=== PATIENT | male | born 1950 | race Caucasian/White ===

== ENCOUNTER 2016-06-26 13:16 | Outpatient (CLI) | payer MEDICARE | END 2016-06-26 13:17 | disposition home or self-care (01) | DX: C61 Malignant neoplasm of prostate (principal) ==

== ENCOUNTER 2016-09-01 12:51 | Outpatient (CLI) | payer MEDICARE | END 2016-09-01 12:52 | disposition home or self-care (01) | DX: C61 Malignant neoplasm of prostate (principal) ==

== ENCOUNTER 2016-10-21 14:46 | Outpatient (CLI) | payer MEDICARE | END 2016-10-21 14:47 | disposition home or self-care (01) | LOC: LAB.F 14:46 | PROVIDERS: ATTEND Urology | DX: C61 Malignant neoplasm of prostate (principal) | CPT/HCPCS: 36415; 84153 ==

== ENCOUNTER 2019-09-02 19:44 | Emergency (ER) | payer MEDICARE ==
--- NOTE | 2019-09-02 20:10 | ED Physician Documentation ---
PD HPI ABD PAIN - Stated complaint Stated Complaint: MALE /UNABLE TO URINATE - Chief complaint Chief Complaint: Abd Pain - History obtained from History obtained from: Patient (68-year-old gentleman with remote prostate cancer history developed inability to urinate earlier today. He also had a few days ago but that seemed to go away on its own. Now he is in severe suprapubic pain.) Review of Systems Ten Systems: 10 systems reviewed and negative Constitutional: reports: Reviewed and negative Cardiac: reports: Reviewed and negative Respiratory: reports: Reviewed and negative PD PAST MEDICAL HISTORY - Allergies Allergies/Adverse Reactions: Allergies Allergy/AdvReac Type Severity Reaction Status Date / Time erythromycin base Allergy Unknown Verified 09/02/19 19:58 PD ED PE NORMAL - Vitals Vital signs reviewed: Yes - General General: Alert and oriented X 3 - Abdomen Abdomen: Soft, Other (He appears uncomfortable, suprapubic tenderness and fullness. No surgical signs.) - Extremities Extremities: No edema, No calf tenderness / cord - Neuro Neuro: Alert and oriented X 3, Normal speech Results - Vitals Vitals: Vital Signs - 24 hr 09/02/19 09/02/19 09/02/19 19:50 19:55 21:26 Temperature 36.6 C Heart Rate 67 63 75 Respiratory 20 16 18 Rate Blood Pressure 219/119 H 194/114 H 175/98 H O2 Saturation 99 100 99 Oxygen O2 Source Room air - Labs Labs: Laboratory Tests 09/02/19 09/02/19 20:44 20:55 Sodium 137 Potassium 3.7 Chloride 102 Carbon Dioxide 23 Anion Gap 12.0 BUN 23 H Creatinine 1.3 H Estimated GFR (MDRD) 55 L Glucose 129 H Calcium 9.1 Urine Color YELLOW Urine Clarity HAZY Urine pH 6.0 Ur Specific [place] 1.020 Urine Protein 100 H Urine Glucose (UA) NEGATIVE Urine Ketones NEGATIVE Urine Occult Blood LARGE H Urine Nitrite NEGATIVE Urine Bilirubin NEGATIVE Urine Urobilinogen 0.2 (NORMAL) Ur Leukocyte Esterase NEGATIVE Urine RBC TNTC H Urine WBC 0-3 Ur Squamous Epith Cells NONE SEEN Urine Bacteria None Seen Ur Microscopic Review INDICATED Urine Culture Comments NOT INDICATED PD MEDICAL DECISION MAKING - ED course ED course: Subsequent to my evaluation the nurse was attempting to place a Webb, I guess it was some difficulty but the patient spontaneously urinated and then felt better. He was given some water, I feel he should probably stick around and urinate again to prove that he can since [place]. We had him drink a bunch of water and he was able to urinate, feeling like he got it all out without distress. Departure - Departure Disposition: 01 Home, Self Care Clinical Impression: Urinary retention Condition: Good Record reviewed to determine appropriate education?: Yes Instructions: ED Retention Urinary Male Comments: Return if you develop recurrent symptoms, either way follow-up with your urologist, I suspect they will want to perform a cystoscopy on you to see what is blocking up your stream.
[2019-09-02 20:58] LABS: CALCIUM 9.1 mg/dL (8.5-10.3); CREATININE 1.3 mg/dL (0.6-1.2)
[2019-09-02 21:01] LABS: BILIRUBIN,URINE NEGATIVE (NEGATIVE); GLUCOSE, URINE (UA) NEGATIVE (NEGATIVE); KETONES,URINE (UA) NEGATIVE (NEGATIVE); LEUKOCYTE ESTERASE, URINE NEGATIVE (NEGATIVE); NITRITE,URINE NEGATIVE (NEGATIVE); OCCULT BLOOD,URINE LARGE (NEGATIVE); PROTEIN,URINE 100 mg/dL (NEGATIVE); UROBILINOGEN,URINE 0.2 (NORMAL) E.U./dL (NORMAL)
[2019-09-02 21:03] LABS: CLARITY,URINE HAZY (CLEAR)
[2019-09-02 21:16] LABS: BACTERIA,URINE None Seen /HPF (None Seen); RBC,URINE TNTC /HPF (0-5); SQUAMOUS EPITHELIAL CELL,UR NONE SEEN (<= Few)
[2019-09-02 21:27] VITALS: BP 175/98
== END 2019-09-02 22:15 | disposition home or self-care (01) ==
LOC: ED 19:44
DX: R33.9 Retention of urine, unspecified (principal); R10.30 Lower abdominal pain, unspecified; Z85.46 Personal history of malignant neoplasm of prostate
CPT/HCPCS: 36415; 51798; 80048; 81001; 81003; 87086; 99283

== ENCOUNTER 2019-12-10 07:19 | Emergency (ER) | payer MEDICARE ==
[2019-12-10] MEDS ORDERED: LORazepam 2 MG/ML VIAL IVP STA (08:05)
--- NOTE | 2019-12-10 08:08 | ED Physician Documentation ---
PD HPI MALE - Stated complaint Stated Complaint: MALE - Chief complaint Chief Complaint: Abd Pain - History obtained from History obtained from: Patient - History of Present Illness Timing - onset: Enter time (2300), Last night Timing - duration: Hours Timing - details: Abrupt onset, Still present Associated symptoms: Dysuria, Unable to urinate Similar symptoms before: Diagnosis (urinary retention) Recently seen: Not recently seen - Additional information Additional information: 68-year-old male with a remote history of prostate cancer has had urinary retention 2 months ago and has developed symptoms of retention again with urgency and inability to urinate. He indicates that he has been getting some urine out periodically small amounts he is markedly decreased the amount of fluid he is drinking.He recalls having difficulty getting catheter placed in August of this year and a follow-up visit to the urologist. He is expecting to have cystoscopy done on the of this month. In the previous visit catheter plac ement was attempted and the patient began to void during the procedure and he was able to void following that until this morning. He indicates he has periods of time where he will have a hard time getting a stream started and sometimes only gets a little out and other times is able to void easily. He has not had fever or vomiting. He has severe pain in the bladder with periodic spikes in pain leaving him breathless. Review of Systems Constitutional: denies: Fever Eyes: denies: Decreased vision Ears: denies: Ear pain Nose: denies: Congestion Throat: denies: Sore throat Cardiac: denies: Chest pain / pressure, Palpitations Respiratory: denies: Dyspnea, Cough GI: reports: Abdominal Pain, Nausea. denies: Vomiting : reports: Dysuria, Frequency, Hesitancy, Unable to Void Skin: denies: Rash Musculoskeletal: denies: Neck pain, Back pain, Extremity pain Neurologic: denies: Generalized weakness, Focal weakness, Numbness PD PAST MEDICAL HISTORY - Past Medical History : Retention - Allergies Allergies/Adverse Reactions: Allergies Allergy/AdvReac Type Severity Reaction Status Date / Time erythromycin base Allergy Unknown Verified 12/10/19 07:33 - Social History Does the pt smoke?: No Smoking Status: Never smoker Does the pt drink ETOH?: No Does the pt have substance abuse?: No - Immunizations Immunizations are current?: Yes PD ED PE NORMAL - Vitals Vital signs reviewed: Yes (hypertensive marked ) - General General: Alert and oriented X 3, No acute distress, Well developed/nourished - HEENT HEENT: Atraumatic, PERRL, EOMI - Neck Neck: Supple, no meningeal sign - Cardiac Cardiac: RRR, No murmur - Respiratory Respiratory: No respiratory distress, Clear bilaterally - Abdomen Abdomen: Soft, Other (suprapubic fullness and tenderness ) - Back Back: No CVA TTP, No spinal TTP - Derm Derm: Normal color, Warm and dry, No rash - Extremities Extremities: No deformity, No edema, No calf tenderness / cord - Neuro Neuro: Alert and oriented X 3, 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, No motor deficit, No sensory deficit, Normal speech Eye Opening: Spontaneous Motor: Obeys Commands Verbal: Oriented GCS Score: 15 - Psych Psych: Normal mood, Normal affect Results - Vitals Vitals: Vital Signs - 24 hr 12/10/19 12/10/19 07:30 09:05 Temperature 37.0 C Heart Rate 84 79 Respiratory 22 16 Rate Blood Pressure 196/115 H 170/100 H O2 Saturation 97 100 Oxygen O2 Source Room air - Labs Labs: Laboratory Tests 12/10/19 12/10/19 12/10/19 08:10 08:10 09:00 WBC 8.4 RBC 5.33 Hgb 15.6 Hct 47.4 MCV 88.9 MCH 29.3 MCHC 32.9 RDW 13.6 Plt Count 212 MPV 10.4 Neut # (Auto) 5.9 Lymph # (Auto) 1.7 [place] # (Auto) 0.6 Eos # (Auto) 0.1 Baso # (Auto) 0.0 Absolute Nucleated RBC 0.00 Nucleated RBC % 0.0 Sodium 137 Potassium 3.5 Chloride 104 Carbon Dioxide 22 Anion Gap 11.0 BUN 21 H Creatinine 1.0 Estimated GFR (MDRD) 74 L Glucose 141 H Calcium 9.3 Total Bilirubin 1.9 H AST 28 ALT 24 Alkaline Phosphatase 100 Total Protein 7.5 Albumin 4.3 Globulin 3.2 Albumin/Globulin Ratio 1.3 Lipase 39 Urine Color YELLOW Urine Clarity HAZY Urine pH 6.0 Ur Specific [place] 1.010 Urine Protein TRACE Urine Glucose (UA) NEGATIVE Urine Ketones NEGATIVE Urine Occult Blood LARGE H Urine Nitrite NEGATIVE Urine Bilirubin NEGATIVE Urine Urobilinogen 0.2 (NORMAL) Ur Leukocyte Esterase NEGATIVE Urine RBC TNTC H Urine WBC 0-3 Ur Squamous Epith Cells RARE Squamous Urine Bacteria Rare Ur Microscopic Review INDICATED Urine Culture Comments NOT INDICATED PD MEDICAL DECISION MAKING - ED course Complexity details: reviewed old records, reviewed results, re-evaluated patient, considered differential, d/w patient ED course: 68-year-old male with acute urinary retention has a full bladder on bedside ultrasound exam. He is also found to be significantly dehydrated. An attempt at placing Webb catheter is made and there is no return of urine. After a third attempt I was called into the room to assist and immediately at that time urine began to flow through the catheter. The catheter was not into the bladder. Following that the catheter was removed the patient was able to void. This is similar to what happened to him in August. Patient is administered intravenous fluid as well as oral fluid. He does have follow-up with his urologist. In the past patient was able to void after similar presentation in August. We will treat conservatively and the patient is discharged to follow up with his urologist as planned and to return for symptoms in the mean time. Departure - Departure Disposition: 01 Home, Self Care Clinical Impression: Urinary retention, Dehydration Condition: Stable Instructions: ED Dehydration, ED Retention Urinary Male Follow-Up: Elin Quezada MD [Primary Care Provider] - Sharee Olivares MD [Physician No Access] -
[2019-12-10 08:17] LABS: BASOPHILS % (AUTO) 0.5 %; EOSINOPHILS # (AUTO) 0.1 10^3/uL (0.0-0.7); EOSINOPHILS % (AUTO) 1.4 %; HGB - HEMOGLOBIN 15.6 g/dL (14.0-18.0); LYMPHOCYTES # (AUTO) 1.7 10^3/uL (1.5-3.5); LYMPHOCYTES % (AUTO) 20.1 %; MEAN CORPUSCULAR HEMOGLOBIN 29.3 pg (27.0-31.0); MEAN CORPUSCULAR HGB CONC 32.9 g/dL (32.0-36.0); MEAN CORPUSCULAR VOLUME 88.9 fL (80.0-94.0); MEAN PLATELET VOLUME 10.4 fL (7.4-11.4); MONOCYTES # (AUTO) 0.6 10^3/uL (0.0-1.0); MONOCYTES % (AUTO) 6.8 %; NEUTROPHILS # (AUTO) 5.9 10^3/uL (1.5-6.6); NEUTROPHILS % (AUTO) 70.8 %; PLT - PLATELET COUNT 212 10^3/uL (130-450); RED BLOOD COUNT 5.33 10^6/uL (4.70-6.10); RED CELL DISTRIBUTION WIDTH 13.6 % (12.0-15.0); WHITE BLOOD COUNT 8.4 x10^3/uL (4.8-10.8)
[2019-12-10] MEDS ORDERED: LIDOCAINE 2% URO-JET 5 ML SYRINGE UR STA ×2 (08:19→08:37)
[2019-12-10 08:35] LABS: ALBUMIN 4.3 g/dL (3.2-5.5); ALBUMIN/GLOBULIN RATIO 1.3 (1.0-2.2); BILIRUBIN,TOTAL 1.9 mg/dL (0.2-1.0); CALCIUM 9.3 mg/dL (8.5-10.3); TOTAL PROTEIN 7.5 g/dL (6.7-8.2)
[2019-12-10] MEDS ORDERED: SODIUM CHLORIDE 0.9% 1,000 ML IV STA (09:16)
[2019-12-10 09:26] LABS: BILIRUBIN,URINE NEGATIVE (NEGATIVE); GLUCOSE, URINE (UA) NEGATIVE (NEGATIVE); KETONES,URINE (UA) NEGATIVE (NEGATIVE); LEUKOCYTE ESTERASE, URINE NEGATIVE (NEGATIVE); NITRITE,URINE NEGATIVE (NEGATIVE); OCCULT BLOOD,URINE LARGE (NEGATIVE); PROTEIN,URINE TRACE mg/dL (NEGATIVE); UROBILINOGEN,URINE 0.2 (NORMAL) E.U./dL (NORMAL)
[2019-12-10 09:29] LABS: CLARITY,URINE HAZY (CLEAR)
[2019-12-10 09:40] LABS: RBC,URINE TNTC /HPF (0-5)
[2019-12-10 09:41] LABS: BACTERIA,URINE Rare /HPF (None Seen); SQUAMOUS EPITHELIAL CELL,UR RARE Squamous (<= Few)
[2019-12-10 10:22] VITALS: BP 158/101
== END 2019-12-10 10:21 | disposition home or self-care (01) ==
LOC: ED 07:19
DX: R33.9 Retention of urine, unspecified (principal); E86.0 Dehydration; Z85.46 Personal history of malignant neoplasm of prostate
CPT/HCPCS: 36415; 51702; 51798; 80053; 81001; 83690; 85025; 96361; 96374; 99283; 99284; J2060; 81003; 87086

== ENCOUNTER 2021-02-27 05:22 | Outpatient (CLI) | payer MEDICARE | END 2021-02-27 05:23 | disposition short-term general hospital (02) | LOC: EMS 05:22 | DX: R20.0 Anesthesia of skin (principal); H53.9 Unspecified visual disturbance; R51.9 Headache, unspecified; R11.0 Nausea | CPT/HCPCS: A0425; A0427 ==

== ENCOUNTER 2022-01-28 08:00 | Outpatient (CLI) | payer MEDICARE ==
[2022-01-28 16:45] LABS: BASOPHILS # (AUTO) 0.1 10^3/uL (0.0-0.1); BASOPHILS % (AUTO) 0.8 %; EOSINOPHILS # (AUTO) 0.1 10^3/uL (0.0-0.7); EOSINOPHILS % (AUTO) 1.5 %; HCT - HEMATOCRIT 48.4 % (42.0-52.0); HGB - HEMOGLOBIN 16.2 g/dL (14.0-18.0); LYMPHOCYTES # (AUTO) 2.2 10^3/uL (1.5-3.5); LYMPHOCYTES % (AUTO) 30.2 %; MEAN CORPUSCULAR HEMOGLOBIN 30.2 pg (27.0-31.0); MEAN CORPUSCULAR HGB CONC 33.5 g/dL (32.0-36.0); MEAN CORPUSCULAR VOLUME 90.1 fL (80.0-94.0); MEAN PLATELET VOLUME 10.8 fL (7.4-11.4); MONOCYTES # (AUTO) 0.6 10^3/uL (0.0-1.0); MONOCYTES % (AUTO) 8.8 %; NEUTROPHILS # (AUTO) 4.2 10^3/uL (1.5-6.6); NEUTROPHILS % (AUTO) 58.4 %; PLT - PLATELET COUNT 192 10^3/uL (130-450); RED BLOOD COUNT 5.37 10^6/uL (4.70-6.10); RED CELL DISTRIBUTION WIDTH 13.5 % (12.0-15.0); WHITE BLOOD COUNT 7.2 x10^3/uL (4.8-10.8)
[2022-01-28 17:05] LABS: ALBUMIN 4.1 g/dL (3.2-5.5); ALBUMIN/GLOBULIN RATIO 1.4 (1.0-2.2); ALKALINE PHOSPHATASE 66 IU/L (42-121); ALT ALANINE AMINOTRANSFERASE 17 IU/L (10-60); AST ASPARTATE AMINOTRANSFERASE 19 IU/L (10-42); BILIRUBIN,TOTAL 1.6 mg/dL (0.2-1.0); BUN - BLOOD UREA NITROGEN 21 mg/dL (6-20); CALCIUM 9.2 mg/dL (8.5-10.3); CARBON DIOXIDE - CO2 26 mmol/L (21-32); CHLORIDE 103 mmol/L (101-111); CHOL/HDL RATIO 3.6 (<5.0); CHOLESTEROL 128 mg/dL; CREATININE 1.2 mg/dL (0.6-1.2); GFR - MDRD 60 (>89); GLUCOSE 101 mg/dL (70-100); HDL CHOLESTEROL 36 mg/dL; LDL CHOLESTEROL,CALCULATED 50 mg/dL; LDL/HDL RATIO 1.4 (<3.6); POTASSIUM 3.7 mmol/L (3.5-5.0); SODIUM 139 mmol/L (135-145); TOTAL PROTEIN 7.1 g/dL (6.7-8.2); TRIGLYCERIDES 209 mg/dL; VLDL CHOLESTEROL 42 mg/dL
[2022-01-28 17:17] LABS: PSA TOTAL 0.007 ng/mL (0.000-2.000)
[2022-01-28 20:30] LABS: ESTIMATED AVERAGE GLUCOSE 117 mg/dL (70-100); HEMOGLOBIN A1c% 5.7 % (4.27-6.07)
== END 2022-01-28 23:59 | disposition home or self-care (01) ==
LOC: LAB.R 08:00
PROVIDERS: ATTEND Internal Medicine
DX: Z00.00 Encounter for general adult medical examination without abnormal findings (principal); I25.10 Atherosclerotic heart disease of native coronary artery without angina pectoris; K21.9 Gastro-esophageal reflux disease without esophagitis; E78.5 Hyperlipidemia, unspecified; I10 Essential (primary) hypertension; R73.01 Impaired fasting glucose; M19.90 Unspecified osteoarthritis, unspecified site; C61 Malignant neoplasm of prostate; L40.9 Psoriasis, unspecified; J30.2 Other seasonal allergic rhinitis; G45.9 Transient cerebral ischemic attack, unspecified
CPT/HCPCS: 80053; 80061; 82306; 83036; 83721; 84153; 84443; 85025

== ENCOUNTER 2023-07-13 08:07 | Day surgery (SDC) | payer MEDICARE ==
[2023-07-13] MEDS: LACTATED RINGERS 1,000 ML IV ONE (08:54)
--- NOTE | 2023-07-13 09:18 | ANESTHESIA ---
Pre-Anesthesia VS, & Labs - Diagnosis screening - Procedure colonoscopy Vital Signs: Temp Pulse Resp BP Pulse Ox O2 Flow Rate 36.2 C L 60 18 159/99 H 100 07/13/23 08:30 07/13/23 08:30 07/13/23 08:30 07/13/23 08:30 07/13/23 08:30 Height: 5 ft 6 in Weight (kg): 61.6 kg Body Mass Index: 21.9 BMI Classification: Normal - NPO Other (prep as directed, finshed water at 630am) Home Medications and Allergies Home Medications: Ambulatory Orders Atorvastatin Calcium [Lipitor] 80 mg PO DAILY 07/10/23 Clopidogrel [Plavix] 75 mg PO DAILY 07/10/23 Esomeprazole Magnesium [Nexium] 40 mg PO DAILY 07/10/23 Lisinopril [Zestril] 20 mg PO DAILY 07/10/23 carvediloL [Coreg] 25 mg PO DAILY 07/10/23 Atorvastatin Calcium [Lipitor] 80 mg PO DAILY 07/10/23 Clopidogrel [Plavix] 75 mg PO DAILY 07/10/23 Esomeprazole Magnesium [Nexium] 40 mg PO DAILY 07/10/23 Lisinopril [Zestril] 20 mg PO DAILY 07/10/23 carvediloL [Coreg] 25 mg PO DAILY 07/10/23 Allergies/Adverse Reactions: Allergies Allergy/AdvReac Type Severity Reaction Status Date / Time erythromycin base Allergy Unknown Verified 12/10/19 07:33 Anes History & Medical History - Anesthetic History Anesthesia Complications: reports: No previous complications - Medical History Cardiovascular: reports: Hypertension, High cholesterol, NC Pulmonary: reports: Asthma Gastrointestinal: reports: GERD Urinary: reports: Retention Neuro: reports: TIA Musculoskeletal: reports: Osteoarthritis Endocrine/Autoimmune: reports: Other Skin: reports: None Smoking Status: Never smoker - Surgical History General: reports: Colonoscopy, EGD, Other Cardiothoracic: reports: Coronary stent Urologic: reports: Prostatic surgery Exam General: Alert, Oriented x3 Dental: WNL Mouth Opening: Greater than 4 Fingerbreadths Neck Mobility: Normal Mallampati classification: II Thyromental Distance: greater than 6 cm Respiratory: Lungs clear Cardiovascular: Regular rate Plan Anesthesia Type: Total IV Consent for Procedure(s) Verified and Reviewed: Yes Code Status: Attempt Resuscitation ASA classification: 3-Severe systemic disease Is this case an emergency?: No
[2023-07-13] MEDS: LACTATED RINGERS 500 ML IV ONE (10:02)
[2023-07-13 10:45] VITALS: BP 156/96; O2SAT 96
--- NOTE | 2023-07-13 15:15 | ANESTHESIA POST OP EVALUATION ---
Anesthesia Post Eval - Post Anesthesia Eval Vitals: Last Vital Signs Temp 36.1 C L 07/13/23 10:36 Pulse 58 L 07/13/23 10:36 Resp 18 07/13/23 10:36 BP 156/96 H 07/13/23 10:36 Pulse Ox 96 07/13/23 10:36 O2 Flow Rate CV Function Including HR & BP: Stable Pain Control: Satisfactory Nausea & Vomiting: Negative Mental Status: Baseline Respiratory Status: Airway Patent Hydration Status: Satisfactory Anesthesia Complications: None
== END 2023-07-13 08:08 | disposition home or self-care (01) ==
LOC: SDS 08:07
PROVIDERS: ATTEND Surgery
DX: Z12.11 Encounter for screening for malignant neoplasm of colon (principal); K64.8 Other hemorrhoids; Z86.73 Personal history of transient ischemic attack (TIA), and cerebral infarction without residual deficits; I25.2 Old myocardial infarction; I10 Essential (primary) hypertension; Z87.891 Personal history of nicotine dependence; C61 Malignant neoplasm of prostate
CPT/HCPCS: G0121; J7120